=== PATIENT | male | born 1960 | race Caucasian/White ===

== ENCOUNTER 2023-01-26 13:15 | Outpatient (CLI) | payer OTHER | END 2023-01-26 13:16 | disposition home or self-care (01) | LOC: TBSIIMAG 13:15 | PROVIDERS: ATTEND Neurological Surgery | DX: M54.2 Cervicalgia (principal); M54.50 Low back pain, unspecified; M47.812 Spondylosis without myelopathy or radiculopathy, cervical region; Q05.7 Lumbar spina bifida without hydrocephalus; M51.26 Other intervertebral disc displacement, lumbar region; Z98.1 Arthrodesis status | CPT/HCPCS: 72040; 72141; 72148 ==